=== PATIENT | female | born 1935 | race Asian ===

== ENCOUNTER → 2024-04-07 | Emergency (ER) | payer MEDICARE, OTHER ==
[~2024-04-07] VITALS: Ht 152.4 cm; Wt 53.2 kg
[~2024-04-07] MED LIST: NYST100033 PO; OMEP20 PO
[2024-04-07 05:57] VITALS: TEMP 98
[2024-04-07 06:32] LABS: COVID AG,FIA SOURCE NASAL SWAB
[2024-04-07] MEDS: LIDOCAINE 2% VISCOUS 15 ML SOLUTION UDCUP PO ONE (07:36)
[2024-04-07] MEDS: PHENOBARB/HYOSCY/ATROPINE/SCOP 5 ML UDCUP ELIXIR PO ONE (07:37)
[2024-04-07] MEDS: MAG HYDROX/ALUMINUM HYD/SIMETH ES 30 ML SUSPENSION UDCUP PO ONE (07:37)
[2024-04-07] MEDS: BACITRACIN 0.9 GM PACKET OINTMENT TP ONE (07:39)
[2024-04-07 07:41] LABS: RAPID GROUP A STREP NEGATIVE (NEGATIVE)
[2024-04-07 07:46] LABS: SARS-COV2 (COVID) ANTIGEN,FIA Negative (Negative)
[2024-04-07 07:48] LABS: INFLUENZA TYPE A NEGATIVE FOR TYPE A (NEGATIVE); INFLUENZA TYPE B NEGATIVE FOR TYPE B (NEGATIVE)
[2024-04-07 08:25] VITALS: BP 154/64; PULSE 66; RESP 20; O2SAT 97
== END | disposition still patient (30) ==
LOC: EMS 06:01
DX: K14.0 Glossitis (principal); K21.9 Gastro-esophageal reflux disease without esophagitis; J02.9 Acute pharyngitis, unspecified; E11.9 Type 2 diabetes mellitus without complications; I10 Essential (primary) hypertension; Z90.49 Acquired absence of other specified parts of digestive tract; Z20.822 Contact with and (suspected) exposure to COVID-19
CPT/HCPCS: 82962; 87430; 87804; 99284

== ENCOUNTER → 2024-08-17 | Emergency (ER) | payer MEDICARE, OTHER ==
[~2024-08-17] VITALS: Ht 152.4 cm; Wt 59.1 kg
[~2024-08-17] MED LIST changes: +FLUC150T61 PO; +OMEP-148 PO; -OMEP20 PO
[2024-08-17 16:26] VITALS: BP 143/68; PULSE 64; RESP 18; TEMP 97.8; O2SAT 98
== END ==
LOC: EMS 16:18
DX: K12.30 Oral mucositis (ulcerative), unspecified (principal); K14.0 Glossitis; K21.9 Gastro-esophageal reflux disease without esophagitis; E11.9 Type 2 diabetes mellitus without complications; E78.00 Pure hypercholesterolemia, unspecified; I10 Essential (primary) hypertension; Z79.899 Other long term (current) drug therapy; Z90.49 Acquired absence of other specified parts of digestive tract
CPT/HCPCS: 82962; 99283